=== PATIENT | female | born 1945 | race Caucasian/White ===

== ENCOUNTER → 2018-08-25 13:08 | Outpatient (CLI) | payer MEDICARE, OTHER, SELFPAY ==
--- NOTE | 2018-08-25 | DI.US.S_ITS ---
PROCEDURE: US CAROTID DOPPLER BI INDICATIONS: LEFT CAROTID BRUIT TECHNIQUE: Color and pulse Doppler interrogation was performed of both carotid systems, with image documentation and velocity measurements. COMPARISON: [facility], [place], CAROTID ARTERY DOPPLER BILAT, 11/04/2013, 10:59. [facility], [place], US THYROID, 08/25/2018, 13:38. FINDINGS: Stenosis calculations are based on SRU (Society of Radiologists in Ultras[employer]) criteria. The flow velocities and the arterial waveforms are normal within both carotid arterial systems. Atherosclerotic plaque is seen on both sides. The estimated degree of internal carotid artery stenosis is less than 50%. Antegrade flow is confirmed within both vertebral arteries. IMPRESSION: No hemodynamically significant stenosis is seen. No significant change from the prior. Atherosclerotic plaque is noted bilaterally. Dictated by: Christiano Heath M.D. on 08/25/2018 at 14:44 Approved by: Christiano Heath M.D. on 08/25/2018 at 14:45
--- NOTE | 2018-08-25 | DI.US.S_ITS ---
PROCEDURE: US THYROID INDICATIONS: NONTOXIC SINGLE THYROID NODULE TECHNIQUE: Real-time scanning was performed of the thyroid gland, with image documentation. COMPARISON: [facility], [place], THYROID, 01/19/2017, 15:42. [facility], [place], US CAROTID DOPPLER BI, 08/25/2018, 13:51. [facility], [place], THYROID, 08/21/2015, 10:37. [facility], [place], THYROID UPTAKE AND SCAN, 09/27/2015, 8:47. FINDINGS: The thyroid is diffusely inhomogeneous. Right: Thyroid lobe measures 7.6 x 3.6 x 3.2 cm. Left: Thyroid lobe measures 9 x 4.1 x 3.1 cm. Isthmus: 22 mm thick. Nodule number: 1 Location: Left inferior thyroid Size: 2.4 x 1.9 x 2.7 cm, previously measuring 2.6 x 2.3 x 2.6 cm. Composition: Solid Echogenicity: Isoechoic Shape: wider than tall. Margins: Smooth Echogenic foci: None Total points: 3 ACR TI-RADS category: 3, mildly suspicious. An ultrasound guided thyroid biopsy is recommended, by published criteria. IMPRESSION: There is a stable nodule seen at the inferior pole of the left thyroid in this patient with an enlarged, diffusely inhomogeneous thyroid gland. By published criteria, an ultrasound guided fine needle aspiration of this nodule would be recommended. However, this nodule would be difficult to biopsy, given its deep location. Furthermore, the prior nuclear medicine scan reveals no abnormal nodule at this site. ACR TI-RADS definitions and recommendations: TI-RADS 1 (benign): 0 points. FNA not needed. TI-RADS 2 (not suspicious): 2 points. FNA not needed. TI-RADS 3 (mildly suspicious): 3 points. * FNA if 2.5 cm or larger, follow up if 1.5 cm or larger (at 1, 3, and 5 years). TI-RADS 4 (moderately suspicious): 4-6 points. * FNA if 1.5 cm or larger, follow up if 1 cm or larger (at 1, 2, 3, and 5 years). TI-RADS 5 (highly suspicious): 7 points or more. * FNA if 1 cm or larger, follow up if 0.5 cm or larger (every year for 5 years). Dictated by: Christiano Heath M.D. on 08/25/2018 at 14:45 Approved by: Christiano Heath M.D. on 08/25/2018 at 14:48
== END ==
PROVIDERS: PCP Physician Assistant; Visit Provider Physician Assistant
DX: I65.23 Occlusion and stenosis of bilateral carotid arteries (principal); E04.1 Nontoxic single thyroid nodule; R09.89 Other specified symptoms and signs involving the circulatory and respiratory systems
CPT/HCPCS: 76536; 93880

== ENCOUNTER → 2018-11-27 14:38 | Outpatient (CLI) | payer MEDICARE, OTHER, SELFPAY ==
--- NOTE | 2018-11-27 14:42 | DI.RAD.S_ITS ---
PROCEDURE: XR LUMBAR SPINE 2-3V INDICATIONS: lumbar pain TECHNIQUE: 3 views of the lumbar spine were acquired. COMPARISON: None. FINDINGS: Bones: 5 [id number] vertebrae are present. There is grade I L4 on L5 anterolisthesis. No vertebral body compression fractures. The extensive degenerative changes including intervertebral disc space narrowing, endplate sclerosis, osteophytosis, and facet sclerosis are present throughout the lumbar spine. No suspicious bony lesions. Soft tissues: Overlying bowel gas pattern is normal. No suspicious soft tissue calcifications. IMPRESSION: Degenerative changes and spondylolisthesis. No wedge compression deformities. Dictated by: Yessi Ladd M.D. on 11/27/2018 at 15:06 Approved by: Yessi Ladd M.D. on 11/27/2018 at 15:10
--- NOTE | 2018-11-27 14:42 | DI.MRI.S_ITS ---
PROCEDURE: MR LUMBAR SPINE WO CON INDICATIONS: lumbar pain TECHNIQUE: Noncontrast sagittal T1 spin echo and T2 fast echo, sagittal STIR, axial T1 and T2 fast spin echo through the lumbar spine. In cases with scoliosis, additional coronal T2 fast spin echo may be performed. COMPARISON: [facility], [place], XR LUMBAR SPINE 2-3V, 11/27/2018, 15:12. FINDINGS: Image quality: Excellent. Alignment and Curvature: There is grade 1 anterolisthesis of L4 on L5. Bone Marrow: Marrow is of normal overall signal. No acute vertebral body compression fractures. Spinal Cord: Conus medullaris terminates at the T12-L1 level. Visualized cord demonstrates normal signal and size. Paraspinous Soft Tissues: No paravertebral masses. T12-L1: Decreased intervertebral disc space and degenerative endplate changes are seen. Broad-based disc bulge and bilateral facet arthrosis is noted. No significant canal stenosis or neuroforaminal narrowing. L1-L2: There is decreased intervertebral disc space and degenerative endplate changes. Broad-based disc bulge and bilateral facet arthrosis is seen with hypertrophy of ligamentum flavum. There is mild to moderate central canal stenosis and mild bilateral neuroforaminal narrowing. L2-L3: There is decreased intervertebral disc space and degenerative endplate changes. Broad-based disc bulge and bilateral facet arthrosis is seen with hypertrophy of ligamentum flavum. Moderate central canal stenosis and mild to moderate bilateral neuroforamina narrowing is seen. There is flattening of bilateral exiting L2 nerve roots. L3-L4: Decreased intervertebral disc space and degenerative endplate changes are seen. Broad-based disc bulge and bilateral facet arthrosis is seen causing moderate to severe central canal stenosis and bilateral neural foramina narrowing. There is likely compression of bilateral exiting L3 nerve roots. L4-L5: There is decreased intervertebral disc space and degenerative endplate changes. Broad-based disc bulge and bilateral facet arthrosis is seen with hypertrophy of ligamentum flavum. There is a moderate central canal stenosis and moderate to severe bilateral neural foramina narrowing. There is compression of exiting left L4 nerve root and bilateral descending L5 nerve roots. L5-S1: Diffuse disc bulge and bilateral facet arthrosis is seen with mild central canal stenosis and moderate right-sided neuroforaminal narrowing. There is compression of right L5 and S1 nerve roots. IMPRESSION: 1. Grade 1 anterolisthesis of L4 on L5. No marrow edema. No acute compression fracture. 2. Degenerative disc bulge and bilateral facet arthrosis throughout lumbar spine causing [id number] central canal stenosis and bilateral neuroforaminal narrowing as described above. Findings normal prominent at L3-4 and L4-5 levels. Dictated by: Lauro Jolley M.D. on 11/29/2018 at 11:23 Approved by: Lauro Jolley M.D. on 11/29/2018 at 11:28
== END ==
PROVIDERS: PCP Student in an Organized Health Care Education/Training Program; Visit Provider Registered Nurse
DX: M54.5 Low back pain (principal); M43.16 Spondylolisthesis, lumbar region; M51.36 Other intervertebral disc degeneration, lumbar region; M51.37 Other intervertebral disc degeneration, lumbosacral region; M47.816 Spondylosis without myelopathy or radiculopathy, lumbar region; M47.817 Spondylosis without myelopathy or radiculopathy, lumbosacral region; M48.061 Spinal stenosis, lumbar region without neurogenic claudication; M48.07 Spinal stenosis, lumbosacral region
CPT/HCPCS: 72100; 72148

== ENCOUNTER 2018-12-30 14:39 | Outpatient (CLI) | payer MEDICARE, OTHER, SELFPAY ==
[2018-12-30] VITALS (7 sets, daily range): BP systolic 140–179; BP diastolic 70–96; PULSE 65–85; RESP 16–18; TEMP 36.3; O2SAT 97–100
--- NOTE | 2018-12-30 14:45 | DI.RAD.S_ITS ---
PROCEDURE: PAIN L/SI FACET INJ/BLK 1STL INDICATIONS: SPONDYLOSIS FINDINGS: Fluoroscopic spot filming was performed to verify placement of spinal needles at the bilateral L4-5 and L5-S1 facet level(s), as labeled on the films. Appropriate location(s) of the needle tip(s) was confirmed by injection of iodinated contrast. IMPRESSION: Successful needle tip localization for facet joint injection presumably with steroid, targeted to the L4-5 and L5-S1 facet joints. Dictated by: Herberth Head M.D. on 12/30/2018 at 16:33 Approved by: Herberth Head M.D. on 12/30/2018 at 16:35
[2018-12-30] MEDS: fentaNYL 100 MCG/2 ML INJ 50 MCG IV (15:25)
[2018-12-30] MEDS: MIDAZOLAM 5 MG/5 ML VIAL IV (15:25)
[2018-12-30] MEDS: IOPAMIDOL 15 ML VIAL 3 ML INJ (15:29)
[2018-12-30] MEDS: LIDOCAINE 1% 20 ML 10 ML INJ (15:30)
[2018-12-30] MEDS: BETAMETHASONE 30 MG/5 ML MDV 12 MG INJ (15:31)
--- NOTE | 2018-12-30 15:42 | PC.NURSE ---
Pt tolerated procedure well. Able to get off table with standby assist. Transferred pt via wheelchair to pre procedure room for continued monitoring with Kierra JETT.
--- NOTE | 2018-12-30 15:50 | P.PCN_ITS ---
Procedures Date/Time Date of procedure: 12/30/18 Time of procedure: 15:49 General Procedure description: PREOP DIAGNOSIS 1. FACET ARTHROPATHY 2. AXIAL LBP 3. MULTILEVEL DDD POST OP DIAGNOSIS 1. FACET ARTHROPATHY 2. AXIAL LBP 3. MULTILEVEL DDD PROCEDURES 1. FLUORSCOPICALLY GUIDED CONTRAST CONTROLLED FACET JOINT INJECTIONS BILATERAL L4/5, L5/S1 PHYSICIAN: Aguilar Ling, DO INDICATIONS Edda is referred by CARINA Acevedo for treatment of Axial LBP FINDINGS Multilevel Facet Arthropathy with Clinically significant axial LBP DESCRIPTION OF PROCEDURE Fluoroscopically guided, contrast-controlled bilateral L4/5, L5/S1 facet joint injections. Following review of allergy and review of potential side effects and complications, including, but not necessarily limited to, infection, allergic reaction, local tissue breakdown, stroke, temporary or permanent nerve injury, paralysis, and possible , the patient indicated that the patient understood and agreed to proceed. An informed consent document was signed by the patient, witnessed by a nurse, and placed in the patient's chart. Additionally, other treatment options including medications, modalities, and physical therapy were reviewed with the patient. After review of previous anaesthesic history and IV conscious sedation the patient was deemed safe to proceed with todays procedure with IV conscious sedation as ASA class II designation. Safety time-out was performed to confirm patient ID, procedure to be performed and site of procedure. IV sedation was accomplished with a combination of 3mg of Versed and 50mcg of Fentanyl was administered by the RN after DO order, titrated to patient comfort during the course of the procedure while the patient remained responsive to all verbal commands In the prone position, following sterile prep and drape of the lumbar region, the posterior aspect of the L4/5, L5/S1 facet joints were identified fluoroscopically. The skin was anesthetized via a 25-gauge 1.5-inch needle with 1% lidocaine solution into the corresponding facet joints. At this point, a 22- gauge 3.5-inch spinal needle was atraumatically introduced and advanced under fluoroscopic guidance into the corresponding facet joints. Following negative aspiration, injections of approximately 0.2-cc of Isovue 200 confirmed interarticular placement without vascular uptake. The identical procedure was then performed at the L4/5, L5/S1 facet joints on the left. Radiological data, including multiple fluoroscopic views of the lumbosacral spine, reveal a spinal needle at the L4/5, L5/S1 facet joints bilaterally. Subsequent views show flow of contrast material both superiorly and inferiorly within the joint space without vascular or intrathecal uptake. At this point, a total of 0.5cc including a mixture of 0.25cc Marcaine and 0.25cc betamethasone was injected without complication into each of the corresponding facet joints. The patient tolerated the procedure well without signs or symptoms of complications prior to transfer to the recovery area continued monitoring without incident. The patient was then transferred to the recovery area where they were observed for an appropriate period of time after the injection. The patient reported a VAS score of 7 prior to the procedure and a post- procedure VAS of 0. Total Fluoroscopy Time: 20.3 seconds Total Conscious Sedation Time: 24min POST OP INSTRUCTIONS The patient was provided a Pain Log to continue to record their response to the target-specific procedure prior to follow-up visit with their referring physician. Additionally, specific post-injection care instructions and a contact number to our office were provided if concerns arise regarding possible complications associated with the procedure are suspected. Aguilar Ling DO Complications: none
--- NOTE | 2018-12-30 15:52 | PC.NURSE ---
ACCEPTED CARE OF PT IN POST PROC AREA STABLE CONDITION
== END 2018-12-30 16:26 | disposition home or self-care (01) ==
PROVIDERS: Family Provider Student in an Organized Health Care Education/Training Program; PCP Student in an Organized Health Care Education/Training Program; Visit Provider Physical Medicine & Rehabilitation
DX: M47.817 Spondylosis without myelopathy or radiculopathy, lumbosacral region (principal); M43.06 Spondylolysis, lumbar region; M51.37 Other intervertebral disc degeneration, lumbosacral region; M99.89 Other biomechanical lesions of abdomen and other regions; M51.9 Unspecified thoracic, thoracolumbar and lumbosacral intervertebral disc disorder
CPT/HCPCS: 64493; 64494; 99152; J0702; J2250; J3010

== ENCOUNTER 2019-03-08 12:16 | Outpatient (CLI) | payer MEDICARE, OTHER, SELFPAY ==
[2019-03-08] VITALS (10 sets, daily range): BP systolic 130–188; BP diastolic 66–98; PULSE 60–77; RESP 16–18; TEMP 36.1; O2SAT 95–98
--- NOTE | 2019-03-08 12:19 | DI.RAD.S_ITS ---
PROCEDURE: PAIN L/S FACET INJ/BLK 1ST ALO COMPARISON: None. INDICATIONS: SPONDYLOSIS FINDINGS: 6 intraoperative fluoroscopy images demonstrate needle placement at level of L4, L5 and S1 bilaterally. IMPRESSION: Fluoroscopy for pain management. Dictated by: Rachell Floyd M.D. on 03/08/2019 at 14:45 Approved by: Rachell Floyd M.D. on 03/08/2019 at 14:47
[2019-03-08] MEDS: fentaNYL 100 MCG/2 ML INJ 50 MCG IV (13:25)
[2019-03-08] MEDS: LIDOCAINE 1% 20 ML 10 ML INJ (13:31)
[2019-03-08] MEDS: BUPIVACAINE 0.5% (PF) VIAL 2 ML INJ (13:32)
[2019-03-08] MEDS: BETAMETHASONE 30 MG/5 ML MDV 12 MG INJ (13:34)
[2019-03-08] MEDS: IOPAMIDOL 15 ML VIAL 3 ML INJ (13:34)
[2019-03-08] MEDS: MIDAZOLAM 5 MG/5 ML VIAL IV (13:36)
--- NOTE | 2019-03-08 13:41 | PC.NURSE ---
ASSISTING PT OFF TABLE AND TRANSPORTING PT TO POST PROC AREA IN STABLE CONDITION. PASSING RN CARE OF PT OFF TO MAL Lin RN.
--- NOTE | 2019-03-08 13:50 | PM.PROC.1 ---
Procedures Date/Time Date of procedure: 03/08/19 Time of procedure: 13:50 General Procedure description: Procedure description: 1. FACET ARTHROPATHY PROCEDURES: 1. BILATERAL- L4, L5 and S1 MB BLOCKS PHYSICIAN: DO YKM Wolf Edda is referred by CARINA Acevedo for treatment of Bilateral Axial LBP. DESCRIPTION OF PROCEDURE Fluoroscopically guided, contrast-controlled bilateral L4, L5 and S1 medial branch blocks with 0.5cc of 0.5% Marcaine. Following review of allergy and review of potential side effects and complications, including, but not necessarily limited to, infection, allergic reaction, local tissue breakdown, nerve injury, paralysis, stroke and possible , the patient indicated that the patient understood and agreed to proceed. An informed consent document was signed by the patient, witnessed by a nurse, and placed in the patient's chart. After review of previous anaesthesic history and IV conscious sedation the patient was deemed safe to proceed with todays procedure with IV conscious sedation as ASA class II designation. Safety time-out was performed to confirm patient ID, procedure to be performed and site of procedure. IV sedation was accomplished with a combination of 3mg of Versed and 50mcg of Fentanyl was administered by the RN after DO order, titrated to patient comfort during the course of the procedure while the patient remained responsive to all verbal commands In the prone position, following sterile prep and drape of the lumbar region, the right L4, L5 and S1 anatomical location of the medial branch of the dorsal ramus was identified fluoroscopically. Subsequently an anesthetic skin wheal using 1% lidocaine solution was initiated at each of the anatomical spots. Subsequently then a 22-gauge 3.5-inch spinal needle was atraumatically introduced and advanced under fluoroscopic guidance at each of the corresponding sites at the right L4, L5 and S1 MB. After negative aspiration, 0.2 cc of Isovue 200 was injected, confirming placement without vascular or intrathecal uptake. Subsequently then 0.5 cc of 0.5% Marcaine solution was injected at each of the corresponding sites at the right L4, L5 and S1 medial branch locations. The identical procedure was replicated on the left. The patient tolerated the procedure well without signs or symptoms of complications prior to transfer to the recovery area continued monitoring without incident. Post-procedure, the patient was monitored initiating provocative activities to measure the amount of relief from block of the facetogenic pain. The patient reported a VAS of 7 prior to the procedure and a post-procedure VAS of 1. It has been a pleasure to assist in the diagnostic and therapeutic care of your patient. Total Fluoroscopy Time: 24.8 seconds Total Conscious Sedation Time: 24min POST OP INSTRUCTIONS The patient was provided with a Pain Log to complete over the next several hours and subsequent days prior to the patient's follow up with the ordering physician. If the patient has foundry supervisor relief to the solution applied, then they may be a candidate for medial branch rhizotomy. The patient is aware, was provided, once again, with a Pain Log and will follow up with the referring physician for review and clinical correlation Aguilar Ling DO
--- NOTE | 2019-03-08 14:16 | PC.NURSE ---
Discharge note: Patient arrived for monitoring post procedure at 1350 via w/c. Transfered to recliner with stand by assist. VSS, O2 Sat WNL on RA. Pain level 0/10. Denies any unusual numbness or tingling to lower extremitnies. tolerating po without any nausea. Able to stand and transfer to wheelchair without any difficulties prior to discharge. Discharged to home, w/c to car at 1415.
== END 2019-03-08 14:15 ==
LOC: RAD 12:19
PROVIDERS: PCP Student in an Organized Health Care Education/Training Program; Visit Provider Physical Medicine & Rehabilitation
DX: M47.816 Spondylosis without myelopathy or radiculopathy, lumbar region (principal); M47.817 Spondylosis without myelopathy or radiculopathy, lumbosacral region; M54.5 Low back pain
CPT/HCPCS: 64493; 64494; 99152; J0702; J2250; J3010

== ENCOUNTER 2019-04-15 10:21 | Outpatient (CLI) | payer MEDICARE, OTHER, SELFPAY ==
[2019-04-15] VITALS (10 sets, daily range): BP systolic 117–164; BP diastolic 58–80; PULSE 70–80; RESP 16–17; TEMP 36.3; O2SAT 95–98
--- NOTE | 2019-04-15 10:23 | DI.RAD.S_ITS ---
PROCEDURE: PAIN L/S MED/LAT N RFA BILAT INDICATIONS: 81177, [id number]- Bilateral L4, L5, and S1 MB Rhizotomy FINDINGS: Fluoroscopic spot filming was performed to verify placement of spinal needles at the L4, L5 and S1 bilateral level(s), as labeled on the films. Appropriate location(s) of the needle tip(s) was confirmed by injection of iodinated contrast. IMPRESSION: Bilateral L4, L5 and S1 positions for medial branch block procedures (6 total). Dictated by: Herberth Head M.D. on 04/15/2019 at 13:01 Approved by: Herberth Head M.D. on 04/15/2019 at 13:02
[2019-04-15] MEDS: fentaNYL 100 MCG/2 ML INJ 50 MCG IV (11:35)
[2019-04-15] MEDS: LIDOCAINE 1% 20 ML 10 ML INJ (11:48)
[2019-04-15] MEDS: BETAMETHASONE 30 MG/5 ML MDV 12 MG INJ (11:48)
[2019-04-15] MEDS: BUPIVACAINE 0.5% (PF) VIAL 2 ML INJ (11:48)
[2019-04-15] MEDS: MIDAZOLAM 5 MG/5 ML VIAL IV (12:00)
--- NOTE | 2019-04-15 12:14 | PC.NURSE ---
ASSISTING PT OFF TABLE AND TRANSPORTING TO POST PROC AREA. PREPPED AND ADMINISTERED VERSED AND FENTANYL. ALL OTHER MEDS PREPPED AND ADMINISTERED BY DR. MCCORD. PASSING RN CARE OF PT OFF TO JOHNIE GUEVARA.
--- NOTE | 2019-04-15 12:19 | P.PCN_ITS ---
Procedures Date/Time Date of procedure: 04/15/19 Time of procedure: 12:20 General Procedure description: PREOP DIAGNOSIS 1. RECALCITRANT FACET ARTHROPATHY, POST OP DIAGNOSIS 1. RECALCITRANT FACET ARTHROPATHY PROCEDURES 1. BILATERAL L4 AND L5 MEDIAL BRANCH RADIOFREQUENCY NEUROTOMY AND S1 DORSAL RAMUS BRANCH RADIOFREQUENCY NEUROTOMY, PHYSICIAN: Aguilar Ling DO INDICATIONS: Edda is referred by Zan Acevedo for treatment of facet arthropathy. DESCRIPTION OF PROCEDURE Right L4 and L5 medial branch radiofrequency neurotomy and right S1 dorsal ramus radiofrequency neurotomy under fluoroscopy with conscious sedation. The patient is well known to this clinic having undergone previous facet injections with good but temporary relief. The patient has experienced appropriate, concordant relief with previous facet and median branch blocks but the patient's pain has been recalcitrant to further conservative measures. Therefore, based upon the patient's relief and persistent symptoms, the patient is considered an appropriate candidate for facet rhizotomy. All of the patient's questions regarding the risks versus benefits of the procedure, including, but not limited to, bleeding, infection, temporary as well as lasting nerve injury, paralysis, stroke, and , as well treatment alternatives were answered to satisfaction. After obtaining informed consent, denial of pertinent drug allergies, as well as being made aware of the potential risks of bleeding, infection, spinal cord trauma, paralysis, temporary and permanent nerve damage, seizure, stroke, and possible , the patient was brought to the fluoroscopy suite and positioned prone on the fluoroscopy table. The lumbar region was prepped with Betadine and covered with a fenestrated drape in the usual sterile fashion. Appropriate monitors applied including pulse oximeter, pulse, and blood pressure for regular monitoring throughout the procedure. After review of previous anaesthesic history and IV conscious sedation the patient was deemed safe to proceed with todays procedure with IV conscious sedation as ASA class II designation. Safety time-out was performed to confirm patient ID, procedure to be performed and site of procedure. IV sedation was accomplished with a combination of 5mg of Versed and 50mcg of Fentanyl administered by the RN after DO order, titrated to patient comfort during the course of the procedure while the patient remained responsive to all verbal commands. After local infiltration using 1% lidocaine, under fluoroscopic guidance, a 15- cm RF insulated needle with a 10-mm active tip was positioned parallel to the junction of the right sacral ala and the superior articulating process where the S1 dorsal ramus resides. Needle placement was confirmed with sensory stimulation at 50 Hz, with motor stimulation of .5v on the right which produced local stimulation without radicular component. The stimulation was then increased to 1.5v with, once again, only local multifidus stimulation without radicular component. This was then followed by two discreet lesions performed at 80 degrees Celsius for 90 seconds each. The needle was then removed and the identical procedure was performed along the length of the right L5 medial branch with motor stimulation at .7v on the right. The identical procedure was once again performed along the length of the right L4 medial branch with motor stimulation of .5v on the right. The identical procedure was repeated on the left. The patient tolerated the procedure well without signs or symptoms of complications prior to transfer to the recovery area continued monitoring without incident. The patient was then transferred to the recovery area where they were observed for an appropriate period of time after the injection. The patient reported a VAS score of 9 prior to the procedure and a post-procedure VAS of 0. Total Fluoroscopy Time: 22.7 seconds Total Conscious Sedation Time: 34min POST OP INSTRUCTIONS The patient was provided a Pain Log to continue to record the patient's response to the target-specific procedure prior to the patient's follow-up visit with the referring physician. Additionally, specific post-injection care instructions and a contact number to our office were provided if concerns arise regarding possible complications associated with the procedure are suspected. Aguilar Ling DO Complications: none
== END 2019-04-15 13:06 | disposition home or self-care (01) ==
LOC: RAD 10:22
PROVIDERS: Family Provider Student in an Organized Health Care Education/Training Program; PCP Student in an Organized Health Care Education/Training Program; Visit Provider Physical Medicine & Rehabilitation
DX: M47.816 Spondylosis without myelopathy or radiculopathy, lumbar region (principal); M47.817 Spondylosis without myelopathy or radiculopathy, lumbosacral region
CPT/HCPCS: 64635; 64636; 99152; J0702; J2250; J3010

== ENCOUNTER → 2019-07-22 09:37 | Outpatient (CLI) | payer MEDICARE, OTHER, SELFPAY ==
[2019-07-22 10:46] LABS: Alanine Aminotransferase 32 IU/L (<35); Albumin 4.7 g/dL (3.5-5.0); Albumin Globulin Ratio 1.7 (1.0-2.8); Alkaline Phosphatase 93 U/L (38-126); Aspartate Aminotransferase 37 IU/L (14-36); BUN Creatinine Ratio 21.9 (6-22); Blood Urea Nitrogen 16 mg/dL (7-17); Calcium 10.4 mg/dL (8.4-10.2); Carbon Dioxide 27 mmol/L (22-32); Chloride 103 mmol/L (98-107); Estimated Glomerular Filt Rate > 60.0 mL/min (>60); Globulin 2.7 g/dL (1.7-4.1); Glucose 113 mg/dL (80-110); HEMOLYSIS < 15 (0-50); Magnesium 2.1 mg/dL (1.6-2.3); Potassium 4.6 mmol/L (3.4-5.1); Sodium 139 mmol/L (137-145); Total Protein 7.4 g/dL (6.3-8.2)
[2019-07-25 10:08] LABS: Cholesterol, Total 194 mg/dL (100-199); HDL-Cholesterol 75 mg/dL (>39); HDL-Particle (Total) 54.1 umol/L (>=30.5); LDL Particle 1406 nmol/L (<1000); LDL-Cholsterol 94 mg/dL (0-99); LP-IR Score 66 (<=45); Small LDL- Particle 864 nmol/L (<=527); Triglycerides 125 mg/dL (0-149)
== END ==
PROVIDERS: Family Provider Student in an Organized Health Care Education/Training Program; PCP Student in an Organized Health Care Education/Training Program; Referring Provider Specialist; Visit Provider Specialist
DX: E78.2 Mixed hyperlipidemia (principal); I48.0 Paroxysmal atrial fibrillation
CPT/HCPCS: 36415; 80053; 80061; 83704; 83735

== ENCOUNTER → 2019-10-25 09:33 | Outpatient (CLI) | payer MEDICARE, OTHER, SELFPAY ==
[2019-10-25 10:12] LABS: Add Manual Diff / Slide Review NO; Basophils Absolute Auto 0 /uL (0-100); Basophils Percent Auto 0.8 % (0-2); Eosinophils Absolute Auto 100 /uL (0-450); Eosinophils Percent Auto 1.2 % (2-4); Hematocrit 43.2 % (36-46); Hemoglobin 14.9 g/dL (12.0-16.0); Lymphocytes Absolute Auto 1500 /uL (1100-4500); Lymphocytes Percent Auto 25.7 % (25-40); Mean Corpuscular HGB Conc 34.5 % (30-36); Mean Corpuscular Hemoglobin 31.7 PG (26-34); Mean Corpuscular Volume 91.8 fL (80-100); Monocytes Absolute Auto 600 /uL (0-900); Monocytes Percent Auto 9.7 % (3-14); Neutrophils Absolute Auto 3700 /uL (1500-7000); Neutrophils Percent Auto 62.6 % (50-75); Platelet Count 220 X10^3/uL (150-400); Red Blood Cell Count 4.71 X10^6/uL (4.0-5.2); Red Cell Distribution Width 12.3 % (11.6-14.8); White Blood Cell Count 5.9 X10^3/uL (4.5-11.0)
[2019-10-25 10:39] LABS: Blood Urea Nitrogen 10 mg/dL (7-17); Calcium 10.4 mg/dL (8.4-10.2); Carbon Dioxide 25 mmol/L (22-32); Chloride 102 mmol/L (98-107); Cholesterol 131 mg/dL (140-199); Estimated Glomerular Filt Rate > 60.0 mL/min (>60); Glucose 108 mg/dL (80-110); HDL Cholesterol 56 mg/dL (40-60); HEMOLYSIS < 15 (0-50); LDL Cholesterol Calculated 56 mg/dL (<100); Potassium 4.3 mmol/L (3.4-5.1); Sodium 137 mmol/L (137-145); Triglycerides 93 mg/dL (35-150)
== END ==
PROVIDERS: Family Provider Student in an Organized Health Care Education/Training Program; PCP Student in an Organized Health Care Education/Training Program; Referring Provider Student in an Organized Health Care Education/Training Program; Visit Provider Student in an Organized Health Care Education/Training Program
DX: I10 Essential (primary) hypertension (principal); E78.2 Mixed hyperlipidemia; I48.91 Unspecified atrial fibrillation
CPT/HCPCS: 36415; 80048; 80061; 85025

== ENCOUNTER → 2019-11-09 12:05 | Outpatient (CLI) | payer MEDICARE, OTHER, SELFPAY ==
--- NOTE | 2019-11-09 | DI.RAD.S_ITS ---
PROCEDURE: XR HIP W PEL IF DONE LT 2V INDICATIONS: LEFT HIP PAIN TECHNIQUE: AP pelvis with lateral view(s) of the left hip(s). COMPARISON: Outside Facility, [facility], XR PELVIS WITH LATERAL HIP, 07/15/2018, 12:17. FINDINGS: Bones: No fracture identified. Right hip arthroplasty expected postoperative alignment. Severe left hip degeneration. Degenerative spurring and sclerosis of the pubis symphysis. Lower lumbar spondylosis and facet arthropathy Soft tissues: The visualized bowel gas pattern is normal. No suspicious soft tissue calcifications. IMPRESSION: Severe left hip degeneration, grossly unchanged since 07/15/18 Dictated by: Jayme Clement M.D. on 11/09/2019 at 15:53 Approved by: Jayme Clement M.D. on 11/09/2019 at 15:54
== END ==
PROVIDERS: Family Provider Student in an Organized Health Care Education/Training Program; PCP Student in an Organized Health Care Education/Training Program; Referring Provider Student in an Organized Health Care Education/Training Program; Visit Provider Student in an Organized Health Care Education/Training Program
DX: M25.552 Pain in left hip (principal); M16.12 Unilateral primary osteoarthritis, left hip
CPT/HCPCS: 73502

== ENCOUNTER 2020-03-25 22:26 | Emergency (ER) | payer MEDICARE, OTHER, SELFPAY ==
[2020-03-25 22:40] VITALS: BP 182/84; PULSE 89; TEMP 37.4; O2SAT 97
[2020-03-25 22:47] VITALS: BP 182/84; PULSE 89; RESP 22; TEMP 37; O2SAT 97
--- NOTE | 2020-03-25 22:51 | ED_ITS ---
HPI - General Adult General Chief complaint: Fever Stated complaint: patient states fever Time Seen by Provider: 03/25/20 22:44 Source: patient Mode of arrival: Ambulatory Limitations: no limitations History of Present Illness HPI narrative: Patient is a 75-year-old female who is receiving ceftriaxone and vancomycin injections from a right upper extremity PICC line sent in by her provider for evaluation of reported fevers. Patient reports that over the past 24 hours she has noticed a fever home of 101. She also reports generally not feeling very well. She is currently being treated for a left hip infection. She did receive all of her antibiotics as scheduled today. Related Data Home Medications Medication Instructions Recorded Confirmed aspirin 81 mg tablet,delayed 81 mg PO DAILY 11/24/18 05/06/19 release atorvastatin 80 mg tablet PO #90 tab 11/24/18 05/06/19 cholecalciferol (vitamin D3) 25 1,000 unit PO DAILY 11/24/18 05/06/19 mcg (1,000 unit) capsule hydrochlorothiazide 25 mg tablet PO #90 tab 11/24/18 05/06/19 losartan 100 mg tablet PO #90 tab 11/24/18 05/06/19 methimazole 5 mg tablet 5 mg PO DAILY 11/24/18 05/06/19 metoprolol succinate 25 mg PO #90 tab 11/24/18 05/06/19 tablet,extended release 24 hr metronidazole 1 % topical gel 1 applictn TOP DAILY 11/24/18 05/06/19 propafenone 225 mg tablet 225 mg PO Q8H 11/24/18 05/06/19 thiamine HCl (vitamin B1) 100 mg 100 mg PO DAILY 11/24/18 05/06/19 tablet Allergies Allergy/AdvReac Type Severity Reaction Status Date / Time azithromycin Allergy Mild Verified 05/06/19 11:36 Penicillins Allergy Mild Verified 05/06/19 11:36 Sulfa (Sulfonamide Allergy Mild Verified 05/06/19 11:36 Antibiotics) Review of Systems Constitutional Constitutional: Reports body ache(s), Denies chills, Reports fatigue, Reports fever(s) and Reports malaise Eyes Eyes: Denies change in vision ENT Ears, Nose, Mouth, and Throat: Denies dizziness, Denies sinus pain and Denies sore throat Cardiovascular Cardiovascular: Denies chest pain, Denies syncope, Denies lightheadedness and Denies dyspnea Respiratory Respiratory: Denies cough and Denies dyspnea Gastrointestinal Gastrointestinal: Denies change in bowel habits, Denies nausea and Denies vomiting Genitourinary Genitourinary: Denies dysuria Genitourinary: Denies dysuria and Denies vaginal discharge Musculoskeletal Musculoskeletal: Reports myalgias Integumentary/Breasts Skin/Breast: Denies lesions, Denies rash and Denies sores Neurologic Neurologic: Denies behavioral changes, Denies dizziness and Denies syncope Psychiatric Psychiatric: Denies behavioral changes Endocrine Endocrine: Reports fatigue Hematologic/Lymphatic Hematologic/Lymphatic: Denies easy bleeding and Denies easy bruising Allergic/Immunologic Allergic/Immunologic: Denies urticaria Patient History Medical History Atrial fibrillation (Inactive) Atrophy of gluteus alonzo muscle (Inactive) DDD (degenerative disc disease), lumbosacral (Inactive) Facet arthropathy, lumbosacral (Inactive) 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 (Inactive) Herniated nucleus pulposus, L4-5 left (Inactive) HTN (hypertension) (Inactive) Lumbar spondylolysis (Inactive) Osteoarthritis of knees, bilateral (Inactive) Surgical History History of appendectomy (Acute) History of hernia repair (Acute) History of hip replacement (Acute) History of removal of both ovaries (Acute) History of total bilateral knee replacement (TKR) (Acute) History of total replacement of right hip (Inactive) Family History Father Heart disease Mesothelioma Mother Diabetes mellitus Melanoma COPD (chronic obstructive pulmonary disease) Breast cancer Social History Smoking Status: Former smoker alcohol intake: current substance use type: does not use Smoking Status: Former smoker Exam Initial Vital Signs Initial Vital Signs: Vital Signs Temperature 99.4 F 03/25/20 22:40 Pulse Rate 89 03/25/20 22:40 Blood Pressure 182/84 H 03/25/20 22:40 Pulse Oximetry 97 03/25/20 22:40 Const General: cooperative, healthy appearing, comfortable, well developed and well groomed Limitations: mental status not altered HENID Head: normal to inspection and normocephalic Ears: hearing grossly normal bilaterally Face and sinus: normal facial exam Mouth: oral mucosae normal Resp Effort & Inspection: normal respiratory effort Auscultation: clear to auscultation bilaterally Cardio Rate: regular rate Rhythm: regular rhythm GI Inspection: non-distended Palpation: soft and No firm Skin Other: Left hip surgical scar appears well without surrounding erythema or redness Neuro General: patient alert and patient awake Cognition: normal cognition Speech: speech normal Extrem General: normal to inspection and capillary refill normal Psych Appearance: grossly normal and well kempt Scores GCS Marty coma scale eye opening: Spontaneous Marty coma scale verbal response: Orientated Marty coma scale motor response: Obey commands Marty coma scale total score: 15 Course Orders Ordered: ED Orders 03/25/20 22:52 XR chest 1V Stat 03/25/20 23:17 Complete Blood Count AUTO DIFF Stat Comprehensive Metabolic Panel Stat Lactate (Lactic Acid) Stat Lipase Stat Procalcitonin Stat Respiratory Panel (Film Array) Stat 03/25/20 23:25 Blood Culture Stat 03/26/20 00:50 Urinalysis and Microscopic Stat 03/26/20 01:00 COVID19 Stat Discontinued Medications Oxycodone/Acetaminophen (Percocet 5/325) 1 tab PO NOW ONE Stop: 03/25/20 23:02 Last Admin: 03/25/20 23:23 Dose: 1 tab Documented by: NORMAN Vital Signs Vital signs: Vital Signs - 8 hr 03/25/20 22:40 03/25/20 22:47 03/26/20 01:30 Temperature 99.4 F 98.6 F 98.1 F Pulse Rate 89 89 79 Respiratory Rate 22 22 Blood Pressure 182/84 H 182/84 H 135/84 Pulse Oximetry 97 97 97 Medical Decision Making Lab Data Lab results reviewed: Yes I reviewed the patient's lab results. Result diagrams: 03/25/20 23:17 03/25/20 23:17 Labs: Lab Results 03/25/20 03/25/20 03/25/20 Range/Units 23:17 23:17 23:17 WBC 5.2 (4.5-11.0) X10^3/uL RBC 3.32 L (4.0-5.2) X10^6/uL Hgb 10.1 L (12.0-16.0) g/dL Hct 30.6 L (36-46) % MCV 92.2 (80-100) fL MCH 30.5 (26-34) PG MCHC 33.1 (30-36) % RDW 13.0 (11.6-14.8) % Plt Count 217 (150-400) X10^3/uL Neut % (Auto) 59.7 (50-75) % Lymph % (Auto) 18.5 L (25-40) % [place] % (Auto) 15.8 H (3-14) % Eos % (Auto) 5.3 H (2-4) % Baso % (Auto) 0.7 (0-2) % Neut # (Auto) 3100 (0033-1139) /uL Lymph # (Auto) 1000 L (3946-4864) /uL [place] # (Auto) 800 (0-900) /uL Eos # (Auto) 300 (0-450) /uL Baso # (Auto) 0 (0-100) /uL Sodium 133 L (137-145) mmol/L Potassium 4.2 (3.4-5.1) mmol/L Chloride 99 (98-107) mmol/L Carbon Dioxide 29 (22-32) mmol/L BUN 12 (7-17) mg/dL Creatinine 0.99 (0.52-1.04) mg/dL Estimated GFR 54.8 L (>60) mL/min BUN/Creatinine Ratio 12.1 (6-22) Glucose 104 (80-110) mg/dL Lactate (0.7-2.1) mmol/L Calcium 9.2 (8.4-10.2) mg/dL Total Bilirubin 0.5 (0.2-1.3) mg/dL AST 52 H (14-36) IU/L ALT 34 (<35) IU/L Alkaline Phosphatase 93 (38-126) U/L Total Protein 6.9 (6.3-8.2) g/dL Albumin 3.9 (3.5-5.0) g/dL Globulin 3.0 (1.7-4.1) g/dL Albumin/Globulin Ratio 1.3 (1.0-2.8) Lipase 191 (23-300) U/L Procalcitonin 0.05 (<0.5) ng/mL Urine Color Urine Appearance Urine pH (4.5-8.0) Ur Specific [place] (1.000-1.035) Urine Protein (Negative) Urine Glucose (UA) (Negative) g/dL Urine Ketones (NEGATIVE) Urine Occult Blood (Negative) Urine Nitrate (Negative) Urine Bilirubin (NEGATIVE) Urine Urobilinogen (0.2) E.U./dL Ur Leukocyte Esterase (NEGATIVE) Urine RBC (0-5/HPF) Urine WBC (0-5/HPF) Ur Squamous Epith Cells (0-5/HPF) Urine Bacteria (None) Ur Culture Indicated? Micro UA Comment Chlamy pneumoniae PCR (Not Detect) Adenovirus (PCR) (Not Detect) B.parapertussis DNA PCR (Not Detect) Coronavirus OC43 (PCR) (Not Detect) Coronavirus HKU1 (PCR) (Not Detect) Coronavirus 229E (PCR) (Not Detect) COVID-19 PCR (Negative) Coronavirus NL63 (PCR) (Not Detect) Human Metapneumovir PCR (Not Detect) Influenza Type A (PCR) (Not Detect) Influenza Type B (PCR) (Not Detect) M. pneumoniae (PCR) (Not Detect) Parainfluenza 1 (PCR) (Not Detect) Parainfluenza 2 (PCR) (Not Detect) Parainfluenza 3 (PCR) (Not Detect) Parainfluenza 4 (PCR) (Not Detect) RSV (PCR) (Not Detect) Entero/Rhino (PCR) (Not Detect) 03/25/20 03/25/20 03/25/20 Range/Units 23:17 23:17 23:17 WBC (4.5-11.0) X10^3/uL RBC (4.0-5.2) X10^6/uL Hgb (12.0-16.0) g/dL Hct (36-46) % MCV (80-100) fL MCH (26-34) PG MCHC (30-36) % RDW (11.6-14.8) % Plt Count (150-400) X10^3/uL Neut % (Auto) (50-75) % Lymph % (Auto) (25-40) % [place] % (Auto) (3-14) % Eos % (Auto) (2-4) % Baso % (Auto) (0-2) % Neut # (Auto) (0841-0872) /uL Lymph # (Auto) (6069-8411) /uL [place] # (Auto) (0-900) /uL Eos # (Auto) (0-450) /uL Baso # (Auto) (0-100) /uL Sodium (137-145) mmol/L Potassium (3.4-5.1) mmol/L Chloride (98-107) mmol/L Carbon Dioxide (22-32) mmol/L BUN (7-17) mg/dL Creatinine (0.52-1.04) mg/dL Estimated GFR (>60) mL/min BUN/Creatinine Ratio (6-22) Glucose (80-110) mg/dL Lactate 0.7 (0.7-2.1) mmol/L Calcium (8.4-10.2) mg/dL Total Bilirubin (0.2-1.3) mg/dL AST (14-36) IU/L ALT (<35) IU/L Alkaline Phosphatase (38-126) U/L Total Protein (6.3-8.2) g/dL Albumin (3.5-5.0) g/dL Globulin (1.7-4.1) g/dL Albumin/Globulin Ratio (1.0-2.8) Lipase (23-300) U/L Procalcitonin (<0.5) ng/mL Urine Color Urine Appearance Urine pH (4.5-8.0) Ur Specific [place] (1.000-1.035) Urine Protein (Negative) Urine Glucose (UA) (Negative) g/dL Urine Ketones (NEGATIVE) Urine Occult Blood (Negative) Urine Nitrate (Negative) Urine Bilirubin (NEGATIVE) Urine Urobilinogen (0.2) E.U./dL Ur Leukocyte Esterase (NEGATIVE) Urine RBC (0-5/HPF) Urine WBC (0-5/HPF) Ur Squamous Epith Cells (0-5/HPF) Urine Bacteria (None) Ur Culture Indicated? Micro UA Comment Chlamy pneumoniae PCR Not detected (Not Detect) Adenovirus (PCR) Not detected (Not Detect) B.parapertussis DNA PCR Not detected (Not Detect) Coronavirus OC43 (PCR) Not detected (Not Detect) Coronavirus HKU1 (PCR) Not detected (Not Detect) Coronavirus 229E (PCR) Not detected (Not Detect) COVID-19 PCR Negative (Negative) Coronavirus NL63 (PCR) Not detected (Not Detect) Human Metapneumovir PCR Not detected (Not Detect) Influenza Type A (PCR) Not detected (Not Detect) Influenza Type B (PCR) Not detected (Not Detect) M. pneumoniae (PCR) Not detected (Not Detect) Parainfluenza 1 (PCR) Not detected (Not Detect) Parainfluenza 2 (PCR) Not detected (Not Detect) Parainfluenza 3 (PCR) Not detected (Not Detect) Parainfluenza 4 (PCR) Not detected (Not Detect) RSV (PCR) Not detected (Not Detect) Entero/Rhino (PCR) Not detected (Not Detect) 03/26/20 Range/Units 00:50 WBC (4.5-11.0) X10^3/uL RBC (4.0-5.2) X10^6/uL Hgb (12.0-16.0) g/dL Hct (36-46) % MCV (80-100) fL MCH (26-34) PG MCHC (30-36) % RDW (11.6-14.8) % Plt Count (150-400) X10^3/uL Neut % (Auto) (50-75) % Lymph % (Auto) (25-40) % [place] % (Auto) (3-14) % Eos % (Auto) (2-4) % Baso % (Auto) (0-2) % Neut # (Auto) (1383-5211) /uL Lymph # (Auto) (0054-7553) /uL [place] # (Auto) (0-900) /uL Eos # (Auto) (0-450) /uL Baso # (Auto) (0-100) /uL Sodium (137-145) mmol/L Potassium (3.4-5.1) mmol/L Chloride (98-107) mmol/L Carbon Dioxide (22-32) mmol/L BUN (7-17) mg/dL Creatinine (0.52-1.04) mg/dL Estimated GFR (>60) mL/min BUN/Creatinine Ratio (6-22) Glucose (80-110) mg/dL Lactate (0.7-2.1) mmol/L Calcium (8.4-10.2) mg/dL Total Bilirubin (0.2-1.3) mg/dL AST (14-36) IU/L ALT (<35) IU/L Alkaline Phosphatase (38-126) U/L Total Protein (6.3-8.2) g/dL Albumin (3.5-5.0) g/dL Globulin (1.7-4.1) g/dL Albumin/Globulin Ratio (1.0-2.8) Lipase (23-300) U/L Procalcitonin (<0.5) ng/mL Urine Color Yellow Urine Appearance Clear Urine pH 7.0 (4.5-8.0) Ur Specific [place] 1.015 (1.000-1.035) Urine Protein Negative (Negative) Urine Glucose (UA) Negative (Negative) g/dL Urine Ketones Negative (NEGATIVE) Urine Occult Blood Negative (Negative) Urine Nitrate Negative (Negative) Urine Bilirubin Negative (NEGATIVE) Urine Urobilinogen 0.2 (0.2) E.U./dL Ur Leukocyte Esterase Negative (NEGATIVE) Urine RBC None seen (0-5/HPF) Urine WBC None seen (0-5/HPF) Ur Squamous Epith Cells 0-1 /hpf (0-5/HPF) Urine Bacteria None seen (None) Ur Culture Indicated? Cult not indicated Micro UA Comment Microscopic normal Chlamy pneumoniae PCR (Not Detect) Adenovirus (PCR) (Not Detect) B.parapertussis DNA PCR (Not Detect) Coronavirus OC43 (PCR) (Not Detect) Coronavirus HKU1 (PCR) (Not Detect) Coronavirus 229E (PCR) (Not Detect) COVID-19 PCR (Negative) Coronavirus NL63 (PCR) (Not Detect) Human Metapneumovir PCR (Not Detect) Influenza Type A (PCR) (Not Detect) Influenza Type B (PCR) (Not Detect) M. pneumoniae (PCR) (Not Detect) Parainfluenza 1 (PCR) (Not Detect) Parainfluenza 2 (PCR) (Not Detect) Parainfluenza 3 (PCR) (Not Detect) Parainfluenza 4 (PCR) (Not Detect) RSV (PCR) (Not Detect) Entero/Rhino (PCR) (Not Detect) Imaging Data Chest x-ray: Radiologist's Impression: Interstitial markings are prominent in both lungs with no focal consolidation MDM Narrative Medical decision making narrative: Patient is well-appearing. She does not have leukocytosis. She is not febrile here in the emergency department. Normal la ctate, negative procalcitonin, not hypotensive. Not tachycardic. Not tachypneic. Chest x-ray is unremarkable. The PICC line site in her right upper extremity looks well. The skin over the left hip looks well in the surgical incision looks well. Blood cultures are pending with 1 set being taken from the PICC line. She is currently on broad-spectrum antibiotics. Her respiratory panel is negative and COVID is negative had a discussion with the patient regarding her symptoms. I feel patient took a safety discharged home based on her history and physical and also her labs. I have her continue her current antibiotic regimen. Informed her that she should contact her primary doctor and also her infectious disease doctor tomorrow to discuss further workup and potentially changing any antibiotics however we will hold on doing any of that now. Patient and her or bedside expressed understanding and agreement. They do understand that there are blood cultures pending at the time of the discharge will contact her if any of them are positive. Discharge Plan Departure Patient Disposition: Home Clinical Impression: Fever Qualifiers: Fever type: unspecified Qualified Code(s): R50.9 - Fever, unspecified Discharge Date/Time: 03/26/20 01:30 Instructions: DI for Fever (Symptom) -- Adult Activity Restrictions/Additional Instructions: Your labs and vital signs here in the emergency department are reassuring. We do have blood cultures that are pending at the time of your discharge. These do take several days to result. I recommend that you continue with all of your current antibiotics and other medicines as directed. Tomorrow contact your primary provider in your infectious disease provider for a follow-up. Return to the emergency department for any new or worsening symptoms Prescriptions: No Action atorvastatin 80 mg tablet PO Qty: 90 RF: 0 thiamine HCl (vitamin B1) 100 mg tablet 100 mg PO DAILY RF: 0 hydrochlorothiazide 25 mg tablet PO Qty: 90 RF: 0 metoprolol succinate 25 mg tablet extended release 24 hr PO Qty: 90 RF: 0 losartan 100 mg tablet PO Qty: 90 RF: 0 metronidazole [Metrogel] 1 % gel 1 applictn TOP DAILY RF: 0 aspirin [Adult Aspirin Regimen] 81 mg tablet,delayed release (DR/EC) 81 mg PO DAILY RF: 0 propafenone 225 mg tablet 225 mg PO Q8H RF: 0 methimazole 5 mg tablet 5 mg PO DAILY RF: 0 cholecalciferol (vitamin D3) 1,000 unit capsule 1,000 unit PO DAILY RF: 0 Referrals: Anat Acevedo PA-C [Primary Care Provider] -
--- NOTE | 2020-03-25 22:52 | DI.RAD.S_ITS ---
PROCEDURE: XR CHEST 1V INDICATIONS: shortness of breath TECHNIQUE: One view of the chest was acquired. COMPARISON: None. FINDINGS: Surgical changes and devices: PICC line projects to the distal SVC via right-sided approach. Lungs and pleura: Mild bilateral lung interstitial prominence. No pleural effusions or pneumothorax. Mediastinum: Mediastinal contours appear normal. Heart size is normal. Bones and chest wall: No suspicious bony lesions. Overlying soft tissues appear unremarkable. IMPRESSION: Mild interstitial prominence which could represent pulmonary edema or atypical pneumonia. Dictated by: Ann-Marie Vargas MD, PhD on 03/26/2020 at 8:42 Approved by: Ann-Marie Vargas MD, PhD on 03/26/2020 at 8:43
[2020-03-25] MEDS: OXYCODONE/ACETAMINOPHEN 5/325 TABLET 1 TAB PO (23:23)
--- NOTE | 2020-03-25 23:35 | PC.NURSE ---
patient requested to have some water and provider okayed for patient to drink. no new orders at this time.
[2020-03-25 23:41] LABS: Alanine Aminotransferase 34 IU/L (<35); Albumin 3.9 g/dL (3.5-5.0); Albumin Globulin Ratio 1.3 (1.0-2.8); Alkaline Phosphatase 93 U/L (38-126); Aspartate Aminotransferase 52 IU/L (14-36); BUN Creatinine Ratio 12.1 (6-22); Bilirubin Total 0.5 mg/dL (0.2-1.3); Blood Urea Nitrogen 12 mg/dL (7-17); Calcium 9.2 mg/dL (8.4-10.2); Carbon Dioxide 29 mmol/L (22-32); Chloride 99 mmol/L (98-107); Estimated Glomerular Filt Rate 54.8 mL/min (>60); Glucose 104 mg/dL (80-110); HEMOLYSIS < 15 (0-50); Lactate (Lactic Acid) 0.7 mmol/L (0.7-2.1); Lipase 191 U/L (23-300); Potassium 4.2 mmol/L (3.4-5.1); Sodium 133 mmol/L (137-145); Total Protein 6.9 g/dL (6.3-8.2)
[2020-03-25 23:42] LABS: Add Manual Diff / Slide Review NO; Basophils Absolute Auto 0 /uL (0-100); Basophils Percent Auto 0.7 % (0-2); Eosinophils Absolute Auto 300 /uL (0-450); Eosinophils Percent Auto 5.3 % (2-4); Hematocrit 30.6 % (36-46); Hemoglobin 10.1 g/dL (12.0-16.0); Lymphocytes Absolute Auto 1000 /uL (1100-4500); Lymphocytes Percent Auto 18.5 % (25-40); Mean Corpuscular HGB Conc 33.1 % (30-36); Mean Corpuscular Hemoglobin 30.5 PG (26-34); Mean Corpuscular Volume 92.2 fL (80-100); Monocytes Absolute Auto 800 /uL (0-900); Monocytes Percent Auto 15.8 % (3-14); Neutrophils Absolute Auto 3100 /uL (1500-7000); Neutrophils Percent Auto 59.7 % (50-75); Platelet Count 217 X10^3/uL (150-400); Red Blood Cell Count 3.32 X10^6/uL (4.0-5.2); White Blood Cell Count 5.2 X10^3/uL (4.5-11.0)
[2020-03-26 00:05] LABS: Procalcitonin 0.05 ng/mL (<0.5)
[2020-03-26 00:45] LABS: Adenovirus Not Detected (Not Detect); Coronavirus 229E Not Detected (Not Detect); Coronavirus HKU1 Not Detected (Not Detect); Coronavirus NL 63 Not Detected (Not Detect)
[2020-03-26 00:46] LABS: Bordetella pertussis Not Detected (Not Detect); Chlamydophila pneumoniae Not Detected (Not Detect); Coronavirus OC43 Not Detected (Not Detect); Human Metapneumovirus Not Detected (Not Detect); Human Rhinovirus/Enterovirus Not Detected (Not Detect); Influenza A Not Detected (Not Detect); Influenza B Not Detected (Not Detect); Mycoplasma pneumoniae Not Detected (Not Detect); Parainfluenza Virus 1 Not Detected (Not Detect); Parainfluenza Virus 2 Not Detected (Not Detect); Parainfluenza Virus 3 Not Detected (Not Detect); Parainfluenza Virus 4 Not Detected (Not Detect); Respiratory Syncytial Virus Not Detected (Not Detect)
[2020-03-26 00:57] LABS: Bacteria Urine None Seen; RBC Urine None Seen (0-5/HPF); WBC Urine None Seen (0-5/HPF)
[2020-03-26 01:00] LABS: Appearance Urine UA CLEAR; Bilirubin Urine UA NEGATIVE (NEGATIVE); Color Urine UA YELLOW; Glucose Urine UA NEGATIVE (Negative); Ketones Urine UA NEGATIVE (NEGATIVE); Leukocyte Esterase Urine UA NEGATIVE (NEGATIVE); Nitrite Urine UA NEGATIVE (Negative); Occult Blood Urine UA NEGATIVE (Negative); Protein Urine UA NEGATIVE (Negative); Specific Gravity Urine UA 1.015 (1.000-1.035); Urobilinogen Urine UA 0.2 E.U./dL (0.2)
[2020-03-26 01:04] LABS: Culture Indicated Urine Cult Not Indicated; Urine Comments Microscopic Normal
[2020-03-26 01:06] LABS: Squamous Epithelial Cell Urine 0-1 /HPF (0-5/HPF)
[2020-03-26 01:30] VITALS: BP 135/84; PULSE 79; RESP 22; TEMP 36.7; O2SAT 97
[2020-03-26 01:53] LABS: COVID19 -Nasal RAPID Negative (Negative)
== END 2020-03-26 01:30 | disposition home or self-care (01) ==
PROVIDERS: Emergency Provider Emergency Medicine; Family Provider Student in an Organized Health Care Education/Training Program; PCP Student in an Organized Health Care Education/Training Program
DX: R50.9 Fever, unspecified (principal); R06.02 Shortness of breath
CPT/HCPCS: 36415; 71045; 80053; 81001; 83605; 83690; 84145; 85025; 87040; 87633; 87635; 99284; J1642

== ENCOUNTER → 2020-04-03 18:48 | Outpatient (ROUT) | payer MEDICARE, OTHER, SELFPAY ==
[2020-04-03 19:21] LABS: Hematocrit 31.4 % (36-46); Hemoglobin 10.4 g/dL (12.0-16.0); Mean Corpuscular HGB Conc 33.1 % (30-36); Mean Corpuscular Hemoglobin 30.2 PG (26-34); Mean Corpuscular Volume 91.2 fL (80-100); Platelet Count 378 X10^3/uL (150-400); Red Blood Cell Count 3.45 X10^6/uL (4.0-5.2); Red Cell Distribution Width 13.3 % (11.6-14.8); White Blood Cell Count 7.7 X10^3/uL (4.5-11.0)
[2020-04-03 19:34] LABS: BUN Creatinine Ratio 17.2 (6-22); Blood Urea Nitrogen 15 mg/dL (7-17); Calcium 9.4 mg/dL (8.4-10.2); Carbon Dioxide 33 mmol/L (22-32); Chloride 100 mmol/L (98-107); Estimated Glomerular Filt Rate > 60.0 mL/min (>60); Glucose 115 mg/dL (80-110); HEMOLYSIS < 15 (0-50); Potassium 4.3 mmol/L (3.4-5.1); Sodium 136 mmol/L (137-145)
[2020-04-03 19:41] LABS: NT-proBNP (BNP-Adult 18+) 280 pg/mL (<125)
[2020-04-03 21:46] LABS: Neutrophils Absolute Manual 4158 /uL (3000-5900); Platelet Estimate Adequate on smear; RBC Morphology Normal Morphology; Total Cells Counted 100
== END ==
PROVIDERS: Family Provider Student in an Organized Health Care Education/Training Program; PCP Student in an Organized Health Care Education/Training Program; Visit Provider Internal Medicine
DX: T81.42XD Infection following a procedure, deep incisional surgical site, subsequent encounter (principal); D50.9 Iron deficiency anemia, unspecified; Z96.642 Presence of left artificial hip joint; R60.9 Edema, unspecified; R35.8 Other polyuria; R06.00 Dyspnea, unspecified
CPT/HCPCS: 80048; 83880; 85025

== ENCOUNTER 2021-10-04 12:58 | Emergency (ER) | payer MEDICARE, OTHER, SELFPAY ==
[2021-10-04 13:20] VITALS: BP 188/89; PULSE 84; RESP 20; TEMP 36.3; O2SAT 94; BMI 39.4
--- NOTE | 2021-10-04 13:32 | DI.RAD.S_ITS ---
PROCEDURE: XR CHEST 2V INDICATIONS: shortness of breath TECHNIQUE: 2 views of the chest were acquired. COMPARISON: [facility], , XR CHEST 1V, 03/25/2020, 23:08. FINDINGS: Surgical changes and devices: None. Lungs and pleura: Lungs are clear. No pleural effusions or pneumothorax. Mediastinum: Mediastinal contours are normal. Heart size is cardiomegaly. Bones and chest wall: No suspicious bony abnormalities. Soft tissues appear unremarkable. IMPRESSION: No acute pulmonary process. Dictated by: Chanel Haro M.D. on 10/04/2021 at 14:28 Approved by: Chanel Haro M.D. on 10/04/2021 at 14:28
[2021-10-04 15:25] LABS: Add Manual Diff / Slide Review NO; Basophils Absolute Auto 0 /uL (0-100); Basophils Percent Auto 0.8 % (0-2); Eosinophils Absolute Auto 0 /uL (0-450); Eosinophils Percent Auto 0.8 % (2-4); Hematocrit 36.3 % (36-46); Hemoglobin 12.3 g/dL (12.0-16.0); Lymphocytes Absolute Auto 1000 /uL (1100-4500); Lymphocytes Percent Auto 21.5 % (25-40); Mean Corpuscular HGB Conc 33.8 % (30-36); Mean Corpuscular Hemoglobin 31.2 PG (26-34); Mean Corpuscular Volume 92.2 fL (80-100); Monocytes Absolute Auto 500 /uL (0-900); Monocytes Percent Auto 11.4 % (3-14); Neutrophils Absolute Auto 3000 /uL (1500-7000); Neutrophils Percent Auto 65.5 % (50-75); Platelet Count 106 X10^3/uL (150-400); Red Blood Cell Count 3.93 X10^6/uL (4.0-5.2); Red Cell Distribution Width 13.7 % (11.6-14.8); White Blood Cell Count 4.6 X10^3/uL (4.5-11.0)
[2021-10-04 15:37] LABS: Alanine Aminotransferase 51 IU/L (<35); Albumin 4.6 g/dL (3.5-5.0); Albumin Globulin Ratio 1.5 (1.0-2.8); Alkaline Phosphatase 91 U/L (38-126); Aspartate Aminotransferase 63 IU/L (14-36); BUN Creatinine Ratio 20.5 (6-22); Bilirubin Total 0.9 mg/dL (0.2-1.3); Blood Urea Nitrogen 15 mg/dL (7-17); Calcium 9.3 mg/dL (8.4-10.2); Carbon Dioxide 23 mmol/L (22-32); Chloride 105 mmol/L (98-107); Estimated Glomerular Filt Rate > 60 mL/min (>60); Glucose 103 mg/dL (80-110); HEMOLYSIS 21 (0-50); Lactate (Lactic Acid) 1.3 mmol/L (0.7-2.1); Potassium 4.4 mmol/L (3.4-5.1); Sodium 140 mmol/L (137-145); Total Protein 7.6 g/dL (6.3-8.2)
[2021-10-04 16:44] LABS: COVID19 -Nasal RAPID Negative (Negative)
[2021-10-04 16:45] LABS: Creatine Kinase 61 U/L (30-135)
[2021-10-04 16:58] LABS: NT-proBNP (BNP-Adult 18+) 526 pg/mL (<450); Troponin I < 0.012 ng/mL (0.01-0.034)
[2021-10-04 18:01] VITALS: BP 170/82; PULSE 73; RESP 18; O2SAT 96
--- NOTE | 2021-10-04 19:02 | ED.SOB ---
HPI - SOB/Dyspnea <Charito Weaver PA-C - Last Filed: 10/04/21 19:16> General Chief Complaint: Shortness of Breath/Dyspnea Stated Complaint: SOB/Shakey/Weakness Time Seen by Provider: 10/04/21 14:54 Source: patient Mode of arrival: Wheelchair History of Present Illness HPI Narrative: Patient is a 76-year-old female presenting with weakness, shakiness, and trouble breathing for the past 10 days. She feels as though the symptoms are getting worse and she was unable to get an appointment with her primary care provider which prompted her to come to the ER. She states that her weakness is generalized all over her body constantly. She additionally reports nasal congestion and states that the shortness of breath is worse when lying down. She has high blood pressure, high cholesterol, and a history of AFib that is monitored by Cardiology. She denies any headache, dizziness, chest pain, cough, nausea, abdominal pain, or abnormal swelling. She normally ambulates using a walker or cane. Related Data Home Medications Medication Instructions Recorded Confirmed aspirin 81 mg tablet,delayed 81 mg PO DAILY 11/24/18 05/06/19 release (Adult Aspirin Regimen) atorvastatin 80 mg tablet PO #90 tab 11/24/18 05/06/19 cholecalciferol (vitamin D3) 25 1,000 unit PO DAILY 11/24/18 05/06/19 mcg (1,000 unit) capsule hydrochlorothiazide 25 mg tablet PO #90 tab 11/24/18 05/06/19 losartan 100 mg tablet PO #90 tab 11/24/18 05/06/19 methimazole 5 mg tablet 5 mg PO DAILY 11/24/18 05/06/19 metoprolol succinate 25 mg PO #90 tab 11/24/18 05/06/19 tablet,extended release 24 hr metronidazole 1 % topical gel 1 applictn TOP DAILY 11/24/18 05/06/19 (Metrogel) propafenone 225 mg tablet 225 mg PO Q8H 11/24/18 05/06/19 thiamine HCl (vitamin B1) 100 mg 100 mg PO DAILY 11/24/18 05/06/19 tablet Previous Rx's Medication Instructions Recorded furosemide 20 mg tablet (Lasix) 20 mg PO DAILY #5 tab 10/04/21 Allergies Allergy/AdvReac Type Severity Reaction Status Date / Time azithromycin Allergy Mild Verified 10/04/21 13:29 Penicillins Allergy Mild Verified 10/04/21 13:29 Sulfa (Sulfonamide Allergy Mild Verified 10/04/21 13:29 Antibiotics) Review of Systems <Charito Weaver PA-C - Last Filed: 10/04/21 19:16> Review of Systems Narrative: GENERAL: Denies fatigue, fever, or chills HEENT: Denies ear pain, vision changes, sore throat, or difficulty swallowing RESPIRATORY: Denies shortness of breath, cough, or wheezing CARDIOVASCULAR: Denies chest pain, pressure, palpitations, or edema GASTROINTESTINAL: Denies, nausea, vomiting, changes in bowel movements, or abdominal pain : Denies dysuria, frequency, hematuria, or flank pain MUSCULOSKELETAL: Denies weakness, arthralgias, or myalgias SKIN: No rash, pruritis, or erythema NEUROLOGIC: Reports weakness. Denies dizziness, headache, numbness, tingling or confusion PSYCHIATRIC: No concerning psychosocial issues. 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 Herniated nucleus pulposus, L4-5 left HTN (hypertension) Lumbar spondylolysis Osteoarthritis of knees, bilateral Surgical History History of appendectomy History of hernia repair History of hip replacement History of removal of both ovaries History of total bilateral knee replacement (TKR) History of total replacement of right hip Family History Father Heart disease Mesothelioma Mother Diabetes mellitus Melanoma COPD (chronic obstructive pulmonary disease) Breast cancer Social History Smoking Status: Former smoker alcohol intake: current substance use type: does not use Smoking Status: Former smoker alcohol intake frequency: 3 or more drinks per day Alcohol type: wine and hard liquor Substance Use Type: does not use Exam <Charito Weaver PA-C - Last Filed: 10/04/21 19:16> Narrative Exam Narrative: GENERAL: 76 year old patient appears stated age. Well-developed patient, in mild distress. HEAD: Atraumatic. Normocephalic. EYES: Pupils equal round and reactive. Extraocular motions intact. No scleral icterus. No injection or drainage. ENT: Nose without bleeding, purulent drainage. Throat without erythema, tonsillar hypertrophy or exudate. Airway patent. NECK: Trachea midline. Non tender CARDIOVASCULAR: Regular rate and rhythm without murmurs, gallops, or rubs. RESPIRATORY: Clear to auscultation. Breath sounds equal bilaterally. No wheezes, rales, or rhonchi. GASTROINTESTINAL: Abdomen soft, non-tender, nondistended. EXTREMITIES: No edema or joint tenderness. BACK: Nontender without deformity or crepitance. No flank tenderness. NEURO: AOx3. SKIN: No rash or erythema of visible areas. 1+ pitting edema on bilateral lower extremities. Initial Vital Signs Initial Vital Signs: Vital Signs Temperature 97.4 F L 10/04/21 13:20 Pulse Rate 84 10/04/21 13:20 Respiratory Rate 20 10/04/21 13:20 Blood Pressure 188/89 H 10/04/21 13:20 Pulse Oximetry 94 10/04/21 13:20 <Kay Rascon DO - Last Filed: 10/05/21 19:31> Initial Vital Signs Initial Vital Signs: Vital Signs Temperature 97.4 F L 10/04/21 13:20 Pulse Rate 84 10/04/21 13:20 Respiratory Rate 20 10/04/21 13:20 Blood Pressure 188/89 H 10/04/21 13:20 Pulse Oximetry 94 10/04/21 13:20 Course <Charito Weaver PA-C - Last Filed: 10/04/21 19:16> Orders Ordered: ED Orders 10/04/21 13:32 XR chest 2V Stat EKG-12 Lead Stat Measure peak expiratory flow ONCE RT Consult Eval and Treat Now 10/04/21 15:15 BNP [NT-proBNP (BNP-Adult 18+)] Stat Complete Blood Count AUTO DIFF Stat Comprehensive Metabolic Panel Stat Lactate (Lactic Acid) Stat Troponin & CK Cardiac Panel Stat 10/04/21 16:15 COVID19 -Nasal RAPID/Pre-Proc Stat Vital Signs Vital signs: Vital Signs - 8 hr 10/04/21 13:20 10/04/21 18:01 Temperature 97.4 F L Pulse Rate 84 73 Respiratory Rate 20 18 Blood Pressure 188/89 H 170/82 H Pulse Oximetry 94 96 <Kay Rascon DO - Last Filed: 10/05/21 19:31> Orders Ordered: ED Orders 10/04/21 13:32 XR chest 2V Stat EKG-12 Lead Stat Measure peak expiratory flow ONCE RT Consult Eval and Treat Now 10/04/21 15:15 BNP [NT-proBNP (BNP-Adult 18+)] Stat Complete Blood Count AUTO DIFF Stat Comprehensive Metabolic Panel Stat Lactate (Lactic Acid) Stat Troponin & CK Cardiac Panel Stat 10/04/21 16:15 COVID19 -Nasal RAPID/Pre-Proc Stat Vital Signs Vital signs: Vital Signs - 8 hr 10/04/21 13:20 10/04/21 18:01 Temperature 97.4 F L Pulse Rate 84 73 Respiratory Rate 20 18 Blood Pressure 188/89 H 170/82 H Pulse Oximetry 94 96 MDM - SOB/Dyspnea <Charito Weaver PA-C - Last Filed: 10/04/21 19:16> Lab Data Result diagrams: 10/04/21 15:15 10/04/21 15:15 Labs: Lab Results 10/04/21 10/04/21 10/04/21 Range/Units 15:15 15:15 15:15 WBC 4.6 (4.5-11.0) X10^3/uL RBC 3.93 L (4.0-5.2) X10^6/uL Hgb 12.3 (12.0-16.0) g/dL Hct 36.3 (36-46) % MCV 92.2 (80-100) fL MCH 31.2 (26-34) PG MCHC 33.8 (30-36) % RDW 13.7 (11.6-14.8) % Plt Count 106 L (150-400) X10^3/uL Neut % (Auto) 65.5 (50-75) % Lymph % (Auto) 21.5 L (25-40) % Franklin % (Auto) 11.4 (3-14) % Eos % (Auto) 0.8 L (2-4) % Baso % (Auto) 0.8 (0-2) % Neut # (Auto) 3000 (2116-9009) /uL Lymph # (Auto) 1000 L (8664-4298) /uL Franklin # (Auto) 500 (0-900) /uL Eos # (Auto) 0 (0-450) /uL Baso # (Auto) 0 (0-100) /uL Sodium 140 (137-145) mmol/L Potassium 4.4 (3.4-5.1) mmol/L Chloride 105 (98-107) mmol/L Carbon Dioxide 23 (22-32) mmol/L BUN 15 (7-17) mg/dL Creatinine 0.73 (0.52-1.04) mg/dL Estimated GFR > 60 (>60) mL/min BUN/Creatinine Ratio 20.5 (6-22) Glucose 103 (80-110) mg/dL Lactate 1.3 (0.7-2.1) mmol/L Calcium 9.3 (8.4-10.2) mg/dL Total Bilirubin 0.9 (0.2-1.3) mg/dL AST 63 H (14-36) IU/L ALT 51 H (<35) IU/L Alkaline Phosphatase 91 (38-126) U/L Total Creatine Kinase (30-135) U/L CK-MB (CK-2) CK-MB (CK-2) Rel Index Troponin I (0.01-0.034) ng/mL NT-Pro-B Natriuret Pep (<450) pg/mL Total Protein 7.6 (6.3-8.2) g/dL Albumin 4.6 (3.5-5.0) g/dL Globulin 3.0 (1.7-4.1) g/dL Albumin/Globulin Ratio 1.5 (1.0-2.8) SARS-CoV-2 (PCR) (Negative) 10/04/21 10/04/21 Range/Units 15:15 16:15 WBC (4.5-11.0) X10^3/uL RBC (4.0-5.2) X10^6/uL Hgb (12.0-16.0) g/dL Hct (36-46) % MCV (80-100) fL MCH (26-34) PG MCHC (30-36) % RDW (11.6-14.8) % Plt Count (150-400) X10^3/uL Neut % (Auto) (50-75) % Lymph % (Auto) (25-40) % Franklin % (Auto) (3-14) % Eos % (Auto) (2-4) % Baso % (Auto) (0-2) % Neut # (Auto) (3867-1475) /uL Lymph # (Auto) (0053-9804) /uL Franklin # (Auto) (0-900) /uL Eos # (Auto) (0-450) /uL Baso # (Auto) (0-100) /uL Sodium (137-145) mmol/L Potassium (3.4-5.1) mmol/L Chloride (98-107) mmol/L Carbon Dioxide (22-32) mmol/L BUN (7-17) mg/dL Creatinine (0.52-1.04) mg/dL Estimated GFR (>60) mL/min BUN/Creatinine Ratio (6-22) Glucose (80-110) mg/dL Lactate (0.7-2.1) mmol/L Calcium (8.4-10.2) mg/dL Total Bilirubin (0.2-1.3) mg/dL AST (14-36) IU/L ALT (<35) IU/L Alkaline Phosphatase (38-126) U/L Total Creatine Kinase 61 (30-135) U/L CK-MB (CK-2) TNP CK-MB (CK-2) Rel Index TNP Troponin I < 0.012 (0.01-0.034) ng/mL NT-Pro-B Natriuret Pep 526 H (<450) pg/mL Total Protein (6.3-8.2) g/dL Albumin (3.5-5.0) g/dL Globulin (1.7-4.1) g/dL Albumin/Globulin Ratio (1.0-2.8) SARS-CoV-2 (PCR) Negative (Negative) Urine Dip Bedside Urine Glucose Negative Bedside Urine Bilirubin - Negative Bedside Urine Ketone - Negative Urine Specific [place] 1.015 Bedside Urine Occult Blood - Negative Bedside Urine pH 6.0 Bedside Urine Protein - Negative Bedside Urine Urobilinogen - Negative Bedside Urine Nitrite - Negative Bedside Urine Leukocytes - Negative Esterase Imaging Data Chest x-ray: Radiologist's Impression: [address] [address] XRay Report Signed Patient: Edda Melgar MR#: [id number] : 1945 Acct:[id number] Age/Sex: 76 / F Date of Service: 10/04/21 Loc: ED Accession Number: [id number] ?? Procedure: XR chest 2V Ordering Provider: Kay Rascon D.O. PROCEDURE:? XR CHEST 2V ? INDICATIONS:? shortness of breath ? TECHNIQUE:? 2 views of the chest were acquired.? ? COMPARISON:? [facility], CR, XR CHEST 1V, 03/25/2020, 23:08. ? FINDINGS:? ? Surgical changes and devices:? None.? ? Lungs and pleura:? Lungs are clear.? No pleural effusions or pneumothorax.? ? Mediastinum:? Mediastinal contours are normal.? Heart size is cardiomegaly. ? Bones and chest wall:? No suspicious bony abnormalities.? Soft tissues appear unremarkable.? ? IMPRESSION:? No acute pulmonary process. ? ? Dictated by: Chanel Haro M.D. on 10/04/2021 at 14:28 ? ? Approved by: Chanel Haro M.D. on 10/04/2021 at 14:28 ? [facility] Narrative Medical decision making narrative: Patient is a 76-year-old female presenting with weakness, shakiness, and trouble breathing for the past 10 days. Chest x-ray and EKG came back as normal. She was COVID negative and her troponin came back as normal. Her BNP came back at 526, which is a new finding for her. Upon physical exam, she had 1+ pitting edema on her bilateral lower extremities. Her lungs were clear to auscultation bilaterally with equal breath sounds and no wheezing. An ambulation trial with pulse ox was performed by nursing and she maintained saturations between 94-97. Based on the above, it is likely her symptoms are due to fluid overload. I prescribed her a short course of Lasix, and advised her to follow-up with her primary care provider for further evaluation and management. She was instructed to return to the ER with worsening shortness of breath, weakness, chest pain, fever, or increased swelling. Findings and discharge diagnosis discussed with patient/family followed by verbalization of understanding Return precautions discussed with patient/family whom verbalize understanding. <Kay Rascon, DO - Last Filed: 10/05/21 19:31> Lab Data Labs: Lab Results 10/04/21 10/04/21 10/04/21 Range/Units 15:15 15:15 15:15 WBC 4.6 (4.5-11.0) X10^3/uL RBC 3.93 L (4.0-5.2) X10^6/uL Hgb 12.3 (12.0-16.0) g/dL Hct 36.3 (36-46) % MCV 92.2 (80-100) fL MCH 31.2 (26-34) PG MCHC 33.8 (30-36) % RDW 13.7 (11.6-14.8) % Plt Count 106 L (150-400) X10^3/uL Neut % (Auto) 65.5 (50-75) % Lymph % (Auto) 21.5 L (25-40) % Franklin % (Auto) 11.4 (3-14) % Eos % (Auto) 0.8 L (2-4) % Baso % (Auto) 0.8 (0-2) % Neut # (Auto) 3000 (7344-1789) /uL Lymph # (Auto) 1000 L (0915-9274) /uL Franklin # (Auto) 500 (0-900) /uL Eos # (Auto) 0 (0-450) /uL Baso # (Auto) 0 (0-100) /uL Sodium 140 (137-145) mmol/L Potassium 4.4 (3.4-5.1) mmol/L Chloride 105 (98-107) mmol/L Carbon Dioxide 23 (22-32) mmol/L BUN 15 (7-17) mg/dL Creatinine 0.73 (0.52-1.04) mg/dL Estimated GFR > 60 (>60) mL/min BUN/Creatinine Ratio 20.5 (6-22) Glucose 103 (80-110) mg/dL Lactate 1.3 (0.7-2.1) mmol/L Calcium 9.3 (8.4-10.2) mg/dL Total Bilirubin 0.9 (0.2-1.3) mg/dL AST 63 H (14-36) IU/L ALT 51 H (<35) IU/L Alkaline Phosphatase 91 (38-126) U/L Total Creatine Kinase (30-135) U/L CK-MB (CK-2) CK-MB (CK-2) Rel Index Troponin I (0.01-0.034) ng/mL NT-Pro-B Natriuret Pep (<450) pg/mL Total Protein 7.6 (6.3-8.2) g/dL Albumin 4.6 (3.5-5.0) g/dL Globulin 3.0 (1.7-4.1) g/dL Albumin/Globulin Ratio 1.5 (1.0-2.8) SARS-CoV-2 (PCR) (Negative) 10/04/21 10/04/21 Range/Units 15:15 16:15 WBC (4.5-11.0) X10^3/uL RBC (4.0-5.2) X10^6/uL Hgb (12.0-16.0) g/dL Hct (36-46) % MCV (80-100) fL MCH (26-34) PG MCHC (30-36) % RDW (11.6-14.8) % Plt Count (150-400) X10^3/uL Neut % (Auto) (50-75) % Lymph % (Auto) (25-40) % Franklin % (Auto) (3-14) % Eos % (Auto) (2-4) % Baso % (Auto) (0-2) % Neut # (Auto) (3840-7186) /uL Lymph # (Auto) (3321-1668) /uL Franklin # (Auto) (0-900) /uL Eos # (Auto) (0-450) /uL Baso # (Auto) (0-100) /uL Sodium (137-145) mmol/L Potassium (3.4-5.1) mmol/L Chloride (98-107) mmol/L Carbon Dioxide (22-32) mmol/L BUN (7-17) mg/dL Creatinine (0.52-1.04) mg/dL Estimated GFR (>60) mL/min BUN/Creatinine Ratio (6-22) Glucose (80-110) mg/dL Lactate (0.7-2.1) mmol/L Calcium (8.4-10.2) mg/dL Total Bilirubin (0.2-1.3) mg/dL AST (14-36) IU/L ALT (<35) IU/L Alkaline Phosphatase (38-126) U/L Total Creatine Kinase 61 (30-135) U/L CK-MB (CK-2) TNP CK-MB (CK-2) Rel Index TNP Troponin I < 0.012 (0.01-0.034) ng/mL NT-Pro-B Natriuret Pep 526 H (<450) pg/mL Total Protein (6.3-8.2) g/dL Albumin (3.5-5.0) g/dL Globulin (1.7-4.1) g/dL Albumin/Globulin Ratio (1.0-2.8) SARS-CoV-2 (PCR) Negative (Negative) Urine Dip Bedside Urine Glucose Negative Bedside Urine Bilirubin - Negative Bedside Urine Ketone - Negative Urine Specific [place] 1.015 Bedside Urine Occult Blood - Negative Bedside Urine pH 6.0 Bedside Urine Protein - Negative Bedside Urine Urobilinogen - Negative Bedside Urine Nitrite - Negative Bedside Urine Leukocytes - Negative Esterase ECG Data Attestation: I personally reviewed and interpreted this ECG as follows: Prior ECG tracings: not available for review Interpretation: Sinus rhythm, rate of 79 W[place] 186 QRS of 174 QTC 499. Right bundle branch block. No priors available for comparision. Discharge Plan Departure Patient Disposition: Home Clinical Impression: Weakness, Shortness of Breath Activity Restrictions/Additional Instructions: *You have been diagnosed with shortness of breath and weakness due to fluid overload. You were given a prescription for Lasix today that was sent to [facility]. Please follow-up with your primary care provider for further evaluation and management. Please return back to the ER with any worsening shortness of breath, dizziness, chest pain, or leg swelling. *What to do: *Please continue to take your regular medications as directed. [X] New medication prescriptions sent to your pharmacy: [[facility]] [ ] New medication written as a paper prescription [ ] No new medications given *Please follow up with your primary care provider in 2-3 days, call for an appointment. Let them know you were seen in the Emergency Department and that we ask that you be seen in follow up. We will electronically transmit a record of today's note if your PCP is in our system *If you do not have a primary care provider please contact the [facility] Call Center at [phone] and they can help get you set up with a doctor in the community. *Return to Emergency Department if you should have any new, worsening or concerning symptoms, such as [fever greater than 101 F, shaking chills, worsening pain, persistent vomiting or other bothersome symptoms] Prescriptions: New furosemide [Lasix] 20 mg tablet 20 mg PO DAILY Qty: 5 0RF No Action atorvastatin 80 mg tablet PO Qty: 90 0RF thiamine HCl (vitamin B1) 100 mg tablet 100 mg PO DAILY 0RF hydrochlorothiazide 25 mg tablet PO Qty: 90 0RF metoprolol succinate 25 mg tablet extended release 24 hr PO Qty: 90 0RF losartan 100 mg tablet PO Qty: 90 0RF metronidazole [Metrogel] 1 % gel 1 applictn TOP DAILY 0RF aspirin [Adult Aspirin Regimen] 81 mg tablet,delayed release (DR/EC) 81 mg PO DAILY 0RF propafenone 225 mg tablet 225 mg PO Q8H 0RF methimazole 5 mg tablet 5 mg PO DAILY 0RF cholecalciferol (vitamin D3) 1,000 unit capsule 1,000 unit PO DAILY 0RF Referrals: Anat Acevedo PA-C [Primary Care Provider] - <Kay Rascon DO - Last Filed: 10/05/21 19:31> Cosign ED Attending Coselviature Attestation: I was immediately available in the department for consultation. Documentation has been reviewed. Case discussed with myself. Labs, EKG and imaging reviewed agree with current plan.
== END 2021-10-04 18:09 | disposition home or self-care (01) ==
PROVIDERS: Emergency Medicine; Emergency Provider Physician Assistant; Family Provider Student in an Organized Health Care Education/Training Program; PCP Student in an Organized Health Care Education/Training Program
DX: R53.1 Weakness (principal); R06.02 Shortness of breath; Z20.822 Contact with and (suspected) exposure to COVID-19
CPT/HCPCS: 36415; 71046; 80053; 81003; 82550; 83605; 83880; 84484; 85025; 87635; 93005; 99284; C9803

== ENCOUNTER → 2021-10-23 11:07 | Outpatient (CLI) | payer MEDICARE, OTHER, SELFPAY ==
--- NOTE | 2021-10-23 | DI.CT.S_ITS ---
PROCEDURE: CT ABDOMEN WO/W CON INDICATIONS: Left adrenal mass TECHNIQUE: Noncontrast 3 mm thick sections acquired from the diaphragms to the iliac crests. After the administration of intravenous contrast, 3 mm thick venous-phase and 15-minute delayed images acquired from the diaphragms to the iliac crests. For radiation dose reduction, the following was used: automated exposure control, adjustment of mA and/or kV according to patient size. COMPARISON: [facility], RG, [facility] PULMONARY, 03/28/2020, 8:17. FINDINGS: Image quality: Excellent. Lung bases: No pleural effusion. Adrenal glands: Redemonstrated 3.2 cm left adrenal nodule. Noncontrast density of 2 Hounsfild units compatible with an adenoma. Right adrenal gland is unremarkable. Solid organs: No suspicious liver lesion visualized. Sub cm hypodensity in hepatic segment 2 is too small to characterize, potential cyst or hemangioma. A calcified gallstone is present in the gallbladder. Biliary system is non dilated. No dilation of the main pancreatic duct. Spleen is unremarkable in appearance. No hydronephrosis or nephrolithiasis. Small cortical cyst at the right upper kidney, imaging follow-up not necessary for this finding per consensus criteria. Peritoneum and bowel: Unenhanced bowel loops are normal in caliber and wall thickness. No free fluid or air. Small hiatal hernia. Nodes and vessels: No retroperitoneal or mesenteric adenopathy by size criteria. Aorta and inferior vena cava are normal in size. Miscellaneous: No ventral hernias. Bones: Degenerative changes of the spine. IMPRESSION: 1. Redemonstrated 3.2 cm left adrenal nodule with internal density compatible with a benign adenoma. 2. Small hiatal hernia. 3. Cholelithiasis. Dictated by: Walter Cuevas M.D. on 10/23/2021 at 20:26 Approved by: Walter Cuevas M.D. on 10/23/2021 at 20:36
[2021-10-23 12:29] LABS: BUN Creatinine Ratio 17.2 (6-22); Blood Urea Nitrogen 16 mg/dL (7-17); Calcium 9.6 mg/dL (8.4-10.2); Carbon Dioxide 28 mmol/L (22-32); Chloride 96 mmol/L (98-107); Estimated Glomerular Filt Rate > 60 mL/min (>60); Glucose 124 mg/dL (80-110); HEMOLYSIS < 15 (0-50); Sodium 133 mmol/L (137-145)
== END ==
PROVIDERS: Family Provider Student in an Organized Health Care Education/Training Program; PCP Student in an Organized Health Care Education/Training Program; Referring Provider Student in an Organized Health Care Education/Training Program; Visit Provider Student in an Organized Health Care Education/Training Program
DX: E27.8 Other specified disorders of adrenal gland (principal); K44.9 Diaphragmatic hernia without obstruction or gangrene; K80.20 Calculus of gallbladder without cholecystitis without obstruction
CPT/HCPCS: 36415; 74170; 80048; Q9967

== ENCOUNTER → 2024-09-13 11:55 | Outpatient (CLI) | payer MEDICARE, OTHER, SELFPAY ==
--- NOTE | 2024-09-13 11:59 | DI.US.S_ITS ---
PROCEDURE: US THYROID INDICATIONS: THYROID NODULES TECHNIQUE: Real-time scanning was performed of the thyroid gland, with image documentation. COMPARISON: [facility], US, US THYROID, 08/25/2018, 13:38. FINDINGS: Thyroid: Right lobe measures 9.1 x 4.0 x 3.9 cm. Left lobe measures 8.5 x 4.6 x 4.1 cm. Isthmus is 1.7 cm thick. Echotexture is diffusely heterogeneous. Nodule number: 1 Location: Left inferior Size: 2.6 x 2.3 x 2.8 cm, previously 2.4 x 1.9 x 2.7 cm and 2.6 x 2.3 x 2.6 cm. Composition: Solid Echogenicity: Hypoechoic Shape: wider than tall. Margins: Smooth Echogenic foci: None Total points: 4 ACR TI-RADS category: 4, moderately suspicious. IMPRESSION: Thyroid gland is enlarged and diffusely heterogeneous. Nodule within the inferior aspect of the left thyroid gland is similar in size compared to prior. Fine-needle aspiration is recommended, however as discussed before, this would be difficult given deep location. ACR TI-RADS definitions and recommendations: TI-RADS 1 (benign): 0 points. FNA not needed. TI-RADS 2 (not suspicious): 2 points. FNA not needed. TI-RADS 3: 3 points. * FNA if 2.5 cm or larger, follow up if 1.5 cm or larger (at 1, 3, and 5 years). TI-RADS 4: 4-6 points. * FNA if 1.5 cm or larger, follow up if 1 cm or larger (at 1, 2, 3, and 5 years). TI-RADS 5: 7 points or more. * FNA if 1 cm or larger, follow up if 0.5 cm or larger (every year for 5 years). Dictated by: Roe Evans M.D. on 09/13/2024 at 13:24 Approved by: Roe Evans M.D. on 09/13/2024 at 13:41
== END ==
PROVIDERS: Family Provider Student in an Organized Health Care Education/Training Program; PCP Student in an Organized Health Care Education/Training Program; Referring Provider Student in an Organized Health Care Education/Training Program; Visit Provider Student in an Organized Health Care Education/Training Program
DX: E04.1 Nontoxic single thyroid nodule (principal)
CPT/HCPCS: 76536

== ENCOUNTER → 2024-09-14 08:40 | Outpatient (CLI) | payer MEDICARE, OTHER, SELFPAY ==
[2024-09-14 09:36] LABS: Alanine Aminotransferase 25 IU/L (<35); Albumin 4.3 g/dL (3.5-5.0); Alkaline Phosphatase 70 U/L (38-126); Aspartate Aminotransferase 36 IU/L (14-36); BUN Creatinine Ratio 20.5 (6-22); Bilirubin Total 0.8 mg/dL (0.2-1.3); Blood Urea Nitrogen 17 mg/dL (7-17); Carbon Dioxide 31 mmol/L (22-32); Chloride 104 mmol/L (98-107); Estimated Glomerular Filt Rate > 60 mL/min (>60); Globulin 2.1 g/dL (1.7-4.1); Glucose 93 mg/dL (70-99); HEMOLYSIS < 15 (0-50); Potassium 4.4 mmol/L (3.4-5.1); Sodium 141 mmol/L (137-145); Total Protein 6.4 g/dL (6.3-8.2)
== END ==
PROVIDERS: Family Provider Student in an Organized Health Care Education/Training Program; PCP Student in an Organized Health Care Education/Training Program; Referring Provider Specialist; Visit Provider Specialist
DX: E78.00 Pure hypercholesterolemia, unspecified (principal)
CPT/HCPCS: 36415; 80053; 80061; 83704; 83735

== ENCOUNTER → 2024-12-13 12:37 | Outpatient (CLI) | payer MEDICARE, OTHER, SELFPAY ==
--- NOTE | 2024-12-13 12:39 | DI.MRI.S_ITS ---
PROCEDURE: MR LUMBAR SPINE WO CON INDICATIONS: LUMBAR RADICULOPATHY TECHNIQUE: Noncontrast sagittal T1 spin echo and T2 fast echo, sagittal STIR, and T2 fast spin echo through the lumbar spine. In cases with scoliosis, additional coronal T2 fast spin echo may be performed. COMPARISON: [facility], MR, MR LUMBAR SPINE WO CON, 11/27/2018, 14:44. FINDINGS: Image quality: Excellent. Alignment and Curvature: Mild levoconvex curvature of the lumbar spine. Grade 1 anterolisthesis of L4 on L5 has not significantly changed. Bone Marrow: Marrow is of normal overall signal. No acute vertebral body compression fractures. Multilevel Schmorl's nodes. Mild Modic type 1 degenerative endplate changes adjacent to the T12-L1 and L1-2 disc spaces. Degenerative changes at the sacroiliac joints. Spinal Cord: Conus medullaris terminates at the T12-L1 level. Visualized cord demonstrates normal signal and size. Paraspinous Soft Tissues: No paravertebral masses. Grade 2 fatty infiltration of the paraspinous musculature. [id number] right renal cyst. T12-L1: Disc desiccation and circumferential disc bulging as well as mild bilateral facet hypertrophy. Findings result in mild narrowing of the spinal canal and mild bilateral neural foraminal narrowing. Findings do not appear significantly changed when compared to the MRI from 11/27/2018. L1-L2: Disc desiccation and circumferential disc bulging as well as mild bilateral facet hypertrophy and buckling of the ligamentum flavum. Findings result in mild narrowing of the spinal canal and mild bilateral neural foraminal narrowing. Findings appear mildly improved secondary to decreased appear lipomatosis. L2-L3: Disc desiccation and circumferential disc bulging as well as [id number] bilateral facet hypertrophy, buckling of the ligamentum flavum, and mild epidural lipomatosis. Findings result in [id number] narrowing of the spinal canal with crowding of the lateral recesses as well as [id number] bilateral neural foraminal narrowing. Findings appear mildly improved when compared to the MRI from 11/27/2018, predominantly due to a decrease in epidural fat. L3-L4: Disc desiccation and moderate circumferential disc bulging as well as moderate bilateral facet hypertrophy and buckling of the ligamentum flavum as well as minimal epidural lipomatosis. Findings result in moderate narrowing of the spinal canal with mild crowding of the lateral recesses as well as moderate right and [id number] left neural foraminal narrowing. Findings appear mildly improved when compared to the MRI from 11/27/2018. L4-L5: Grade 1 anterolisthesis and superimposed disc bulging as well as severe bilateral facet hypertrophy, buckling of the ligamentum flavum, and mild epidural lipomatosis. Findings result in moderate to severe narrowing of the spinal canal with effacement of the lateral recesses as well as moderate right and moderate to severe left neural foraminal narrowing. Findings do not appear significantly changed. L5-S1: Disc desiccation and circumferential disc bulging as well as severe bilateral facet hypertrophy. Findings result in mild bilateral neural foraminal narrowing without significant spinal canal stenosis. IMPRESSION: 1. Multilevel degenerative disc disease and facet hypertrophy as described in the body of the report. When compared to the MRI from 11/27/2018, there has been decreased epidural lipomatosis resulting in improved findings at multiple levels. 2. At L4-5, grade 1 anterolisthesis and degenerative changes again result in moderate to severe narrowing of the spinal canal as well as moderate to severe left and moderate right neural foraminal narrowing. Approved by: Walter Doll M.D. on 12/14/2024 at 12:16
== END ==
PROVIDERS: Family Provider Student in an Organized Health Care Education/Training Program; PCP Student in an Organized Health Care Education/Training Program; Referring Provider Student in an Organized Health Care Education/Training Program; Visit Provider Family Medicine
DX: M51.16 Intervertebral disc disorders with radiculopathy, lumbar region (principal); M51.17 Intervertebral disc disorders with radiculopathy, lumbosacral region; M48.061 Spinal stenosis, lumbar region without neurogenic claudication; M48.07 Spinal stenosis, lumbosacral region; M47.26 Other spondylosis with radiculopathy, lumbar region; M47.27 Other spondylosis with radiculopathy, lumbosacral region; M43.16 Spondylolisthesis, lumbar region; E88.2 Lipomatosis, not elsewhere classified; N28.1 Cyst of kidney, acquired
CPT/HCPCS: 72148

== ENCOUNTER → 2025-03-14 07:17 | Outpatient (CLI) | payer MEDICARE, OTHER, SELFPAY ==
[2025-03-14 08:00] LABS: Hematocrit 39.1 % (36-46); Hemoglobin 13.2 g/dL (12.0-16.0); Mean Corpuscular HGB Conc 33.8 % (30-36); Mean Corpuscular Hemoglobin 29.9 PG (26-34); Mean Corpuscular Volume 88.3 fL (80-100); Platelet Count 181 X10^3/uL (150-400)
[2025-03-14 08:47] LABS: Alanine Aminotransferase 24 IU/L (<35); Albumin 4.4 g/dL (3.5-5.0); Albumin Globulin Ratio 2.0 (1.0-2.8); Alkaline Phosphatase 67 U/L (38-126); Blood Urea Nitrogen 23 mg/dL (7-17); Calcium 9.8 mg/dL (8.4-10.2); Carbon Dioxide 30 mmol/L (22-32); Chloride 103 mmol/L (98-107); Cholesterol 114 mg/dL (140-199); Estimated Glomerular Filt Rate > 60 mL/min (>60); Globulin 2.2 g/dL (1.7-4.1); Glucose 94 mg/dL (70-99); HDL Cholesterol 62 mg/dL (40-60); HEMOLYSIS < 15 (0-50); Magnesium 2.1 mg/dL (1.6-2.3); Potassium 4.2 mmol/L (3.4-5.1); Sodium 139 mmol/L (137-145); Total Protein 6.6 g/dL (6.3-8.2); Triglycerides 71 mg/dL (35-150)
== END ==
PROVIDERS: Family Provider Student in an Organized Health Care Education/Training Program; PCP Student in an Organized Health Care Education/Training Program; Referring Provider Specialist; Visit Provider Specialist
DX: E78.00 Pure hypercholesterolemia, unspecified (principal); I48.0 Paroxysmal atrial fibrillation; Z79.01 Long term (current) use of anticoagulants
CPT/HCPCS: 36415; 80053; 80061; 83735; 85027